=== PATIENT | male | born 1985 | race Caucasian/White ===

== ENCOUNTER 2019-10-03 11:37 | Inpatient (IN) | payer OTHER ==
--- NOTE | 2019-10-03 13:02 | HP ---
CIWA Score Nausea/Vomitin-Mild Nausea/No Vomiting Muscle Tremors: 2 Anxiety: 3 Agitation: 2 Paroxysmal Sweats: No Perspiration Orientation: 0-Oriented Tacttile Disturbances: 0-None Auditory Disturbances: 1-Very Mild Visual Disturbances: 3-Moderate Sensitivity Headache: 0-None Present CIWA-Ar Total Score: 12 - Admission Criteria OASAS Guidelines: Admission for Medically Managed Detox: Requires at least one of the followin. CIWA greater than 12 2. Seizures within the past 24 hours 3. Delirium tremens within the past 24 hours 4. Hallucinations within the past 24 hours 5. Acute intervention needed for co occurring medical disorder 6. Acute intervention needed for co occurring psychiatric disorder 7. Severe withdrawal that cannot be handled at a lower level of care (continued vomiting, continued diarrhea, abnormal vital signs) requiring intravenous medication and/or fluids 8. Admitting History and Physical - Admission Chief Complaint: Mr. Rice presents to [facility] requesting detox for "withdrawal from alcohol". History of Present Illness: Mr. Rice presents to [facility] requesting detox for "withdrawal from alcohol". He is a 34 yo gentleman with a hx of asthma. PMH: asthma PSH: none Psych: depression, non compliant: trazadone last dose 2 days ago, Lexapro 10 m gd Substance Use History Alcohol: 2 pints Vodka daily, began at age 13 y, last drink yesterday. Longest abstinence [id number], then relapsed. Here in 2009. Blackout yesterday went to [place], tx with Librium last night. Hx of seizure 3 weeks ago with alcohol abstinence. Nicotine: stopped age 17 y Denies: benzo, heroin, methadone, cocaine - Past Medical History Pulmonary: Yes: Asthma - Smoking History Smoking history: Former smoker Have you smoked in the past 12 months: No - Alcohol/Substance Use Hx Alcohol Use: Yes - Social History Usual Living Arrangement: Yes: Other (alf) Do you think of yourself as: Straight/Heterosexual Occupation: not working History of Recent Travel: No Admission ROS [facility] Allergies/Adverse Reactions: Allergies Allergy/AdvReac Type Severity Reaction Status Date / Time No Known Drug Allergies Allergy Verified 10/03/19 13:13 - Ebola screening Have you traveled outside of the country in the last 21 days: No Have you had contact with anyone from an Ebola affected area: No Have you been sick,other than usual withdrawal symptoms: No Do you have a fever: No - Review of Systems Constitutional: No Symptoms Reported EENT: reports: No Symptoms Reported Respiratory: reports: No Symptoms reported Cardiac: reports: No Symptoms Reported GI: reports: No Symptoms Reported : reports: No Symptoms Reported Musculoskeletal: reports: No Symptoms Reported Integumentary: reports: No Symptoms Reported Neuro: reports: No Symptoms reported Endocrine: reports: No Symptoms Reported Hematology: reports: No Symptoms Reported Psychiatric: reports: No Sypmtoms Reported, Depressed Patient History - Patient Medical History Hx Asthma: Yes (albuterol prn) Hx Chronic Obstructive Pulmonary Disease (COPD): No Hx Cancer: No Hx Cardiac Disorders: No Hx Congestive Heart Failure: No Hx Hypertension: No Hx Hypercholesterolemia: No HX Cerebrovascular Accident: No Hx Seizures: Yes (3 weeks ago in the context of alcohol withdrawal) Hx Diabetes: No Hx Gastrointestinal Disorders: No Hx Liver Disease: No Hx Sexually Transmitted Disorders: No Hx Renal Disease (ESRD): No Hx Thyroid Disease: No Hx Human Immunodeficiency Virus (HIV): No Hx Hepatitis C: No Hx Depression: Yes (Lexapro and trazadone) Hx Suicide Attempt: No - Patient Surgical History Past Surgical History: No - PPD History Documented Results: Negative w/o proof PPD to be Administered?: Yes - Smoking Cessation Smoking history: Former smoker Have you smoked in the past 12 months: No Initiated information on smoking cessation: No - Substances abused Alcohol Frequency: Daily Amount used: 2 pints Vodka Age of first use: 13 Date of last use: 10/02/19 Admission Physical Exam [facility] - Physical General Appearance: Yes: Within Normal Limits, Thin HEENTM: Yes: Within Normal Limits Respiratory: Yes: Lungs Clear Neck: Yes: Within Normal Limits Breast: Yes: Breast Exam Deferred Cardiology: Yes: Regular Rate, S1, S2, Tachycardia Abdominal: Yes: Normal Bowel Sounds, Non Tender, Flat Genitourinary: Yes: Other (deferred) Back: Yes: Normal Inspection Musculoskeletal: Yes: Within Normal Limits Extremities: Yes: Within Normal Limits Neurological: Yes: Fully Oriented, Alert, Other (limp, old injury) - Diagnostic (1) Alcohol dependence with withdrawal, uncomplicated Current Visit: Yes Status: Acute (2) Depression Current Visit: Yes Status: Acute Cleared for Admission [facility] - Detox or Rehab [facility] Level of Care: Medically Managed Breathalyzer - Breathalyzer Breathalyzer: 0.118 Urine Drug Screen - Results Urine drug screen results: THC-Marijuana, BZO-Benzodiazepines Inpatient Rehab Admission - Rehab Decision to Admit Inpatient rehab admission?: No
[2019-10-03] MEDS ORDERED: METHOCARBAMOL 500 MG TABLET PO PRN (13:14)
[2019-10-03] MEDS ORDERED: MELATONIN 5 MG TABLETS PO PRN (13:14)
[2019-10-03] MEDS ORDERED: MAGNESIUM CITRATE 300 ML BOTTLE PO PRN (13:14)
[2019-10-03] MEDS ORDERED: MENTHOL/PHENOL 1 EACH UD MM PRN (13:14)
[2019-10-03] MEDS ORDERED: ACETAMINOPHEN 325 MG TABLET (FP) PO PRN ×2 (13:14)
[2019-10-03] MEDS ORDERED: MAGNESIUM HYDROX 2400MG/30ML ORAL SUSPENSION 30 ML CUP PO PRN (13:14)
[2019-10-03] MEDS ORDERED: chlordiazePOXIDE HCL 25 MG CAPSULE PO PRN (13:14)
[2019-10-03] MEDS ORDERED: BISMUTH SUBSALICYLATE 262 MG/15 ML BTL PO PRN (13:14)
[2019-10-03] MEDS ORDERED: MAG HYDROX/AL HYDROX/SIMETH 30 ML UNIT-DOSE CUP PO PRN (13:14)
[2019-10-03 13:52] VITALS: BMI 20.5
[2019-10-03 17:11] LABS: HEMATOCRIT 42.2 % (35.4-49); HEMOGLOBIN 14.2 GM/dL (11.7-16.9); MCH 31.6 pg (25.7-33.7); MCHC 33.7 g/dl (32.0-35.9); MEAN CELL VOLUME 93.8 fl (80-96); MEAN PLT VOLUME 8.2 fl (7.5-11.1); PLATELET COUNT 352 K/MM3 (134-434); RBC 4.49 M/mm3 (4.00-5.60); RDW 14.9 % (11.9-15.9); WHITE BLOOD COUNT 7.8 K/mm3 (4.0-10.0)
[2019-10-03 17:24] LABS: ALBUMIN 3.4 g/dl (3.4-5.0); BLOOD UREA NITROGEN 9.3 mg/dL (7-18); CALCIUM 8.2 mg/dL (8.5-10.1); CREATININE 0.6 mg/dL (0.55-1.3); POTASSIUM 3.6 mmol/L (3.5-5.1); TOT PROT 6.9 g/dl (6.4-8.2)
[2019-10-03] MEDS: chlordiazePOXIDE HCL 25 MG CAPSULE PO SCH ×2 (18:03→22:17)
[2019-10-03] MEDS: IBUPROFEN 400 MG TABLET (FP) PO PRN (18:04)
[2019-10-03] MEDS: THIAMINE HCL 100 MG TABLET (FP) PO SCH (22:17)
[2019-10-04] MEDS: chlordiazePOXIDE HCL 25 MG CAPSULE PO SCH ×4 (05:59→22:11)
--- NOTE | 2019-10-04 08:51 | CONSULT ---
[facility] Psychiatric Consult - Data Date of interview: 10/04/19 Admission source: [facility] Identifying data: Mr Rice is a 34 years old male, father of a 5 years old daughter, unemployed receiving SSD, homeless in a [facility] seeking detox treatment for alcohol Substance Abuse History: Reports history of alcohol use. Refer to addiction counselor's summary for further information Medical History: Significant for bronchial asthma and history of alcohol related seizure. Psychiatric History: Reports that his first psychiatric contact occured at age 13 when he was diagnosed with MDD and started on Prozac. Reports receiving psychiatric treatment on & off since. He received outpatient psychiatric treatment for 5 months at [facility] till July 2019. He said that he stopped going there because it was too far. His most recent psychiatric contact occured in July 2019 when he saw a private psychiatrist in the [facility] and he was continued on Lexapro 10 mg/day and Trazadone 100 mg/hs which he was prescribed at [facility]. 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 Reports that he is currently receiving outpatient psychiatric treatment at [facility] but has not seen their staff psychiatrist yet. Reports 6-7 previous psychiatric hospitalizations at various facilities including [facility], [facility] and [facility]. Claims most recent psychiatric admission was more than one year ago but does not recall the location. Denies previous suicidal attempt. At present, reports feeling depressed, anxious and sleeping poorly. Requests to resume medications Physical/Sexual Abuse/Trauma History: Denies history of abuse as a child or DV relationship as an adult Mental Status Exam - Mental Status Exam Alert and Oriented to: Time, Place, Person Cognitive Function: Fair Patient Appearance: Disheveled Mood: Depressed, Anxious Affect: Constricted Patient Behavior: Cooperative Speech Pattern: Clear Voice Loudness: Normal Thought Process: Intact, Goal Oriented Thought Disorder: Not Present Hallucinations: Denies Suicidal Ideation: Denies Homicidal Ideation: Denies Insight/Judgement: Poor Sleep: Poorly Appetite: Poor Muscle strength/Tone: Normal Gait/Station: Normal Psychiatric Findings - Problem List ([place] 1, 2,3) (1) MDD (major depressive disorder), recurrent, severe, with psychosis Current Visit: Yes Status: Chronic (2) Alcohol-induced mood disorder Current Visit: Yes Status: Acute (3) Alcohol-induced sleep disorder Current Visit: Yes Status: Acute (4) Alcohol dependence with withdrawal, uncomplicated Current Visit: Yes Status: Acute (5) Bronchial asthma Current Visit: Yes Status: Chronic (6) Alcohol related seizure Current Visit: Yes Status: Resolved - Initial Treatment Plan Initial Treatment Plan: 1) Resume Lexapro 10 mg po daily and Trazadone 100 mg po HS. 2) Continue inpatient detoxification
[2019-10-04] MEDS: ESCITALOPRAM OXALATE 10 MG TABLET PO SCH (10:01)
[2019-10-04] MEDS: PRENATAL VITAMINS W/ FOLIC ACID TABLET (FP) PO SCH (10:01)
--- NOTE | 2019-10-04 11:24 | PN ---
S CIWA - CIWA Score Nausea/Vomitin-Mild Nausea/No Vomiting Muscle Tremors: 2 Anxiety: 2 Agitation: 2 Paroxysmal Sweats: No Perspiration Orientation: 0-Oriented Tacttile Disturbances: 1-Very Mild Itch/Numbness Auditory Disturbances: 0-None Visual Disturbances: 0-None Headache: 1-Very Mild CIWA-Ar Total Score: 9 S Progress Note (SOAP) Subjective: alert,irritable,anxious,interrupted sleep,rash in both legs,stated has it for 1 month and was treated with permethrin before Objective: 10/04/19 11:26 Vital Signs Temperature 98.2 F 10/04/19 08:52 Pulse Rate 84 10/04/19 08:52 Respiratory Rate 18 10/04/19 08:52 Blood Pressure 112/93 10/04/19 08:52 O2 Sat by Pulse Oximetry (%) Assessment: 10/04/19 11:26 withdrawal symptom 10/04/19 11:27 rash in both legs Plan: continue detox libium regimen
[2019-10-04] MEDS: hydrOXYzine PAMOATE 25 MG CAPSULE (FP) PO PRN (11:40)
[2019-10-04] MEDS ORDERED: PERMETHRIN 5% TOPICAL CREAM 60 GM TUBE TP ONE (11:50)
[2019-10-04] MEDS: traZODone HCL 100 MG TABLET (FP) PO SCH (22:11)
[2019-10-04] MEDS: THIAMINE HCL 100 MG TABLET (FP) PO SCH (22:11)
[2019-10-05] MEDS: chlordiazePOXIDE HCL 25 MG CAPSULE PO SCH ×4 (05:17→22:36)
[2019-10-05] MEDS: hydrOXYzine PAMOATE 25 MG CAPSULE (FP) PO PRN ×2 (05:17→22:36)
[2019-10-05] MEDS: PRENATAL VITAMINS W/ FOLIC ACID TABLET (FP) PO SCH (10:01)
[2019-10-05] MEDS: ESCITALOPRAM OXALATE 10 MG TABLET PO SCH (10:02)
[2019-10-05] MEDS: IBUPROFEN 400 MG TABLET (FP) PO PRN (10:44)
--- NOTE | 2019-10-05 12:06 | PN ---
S CIWA - CIWA Score Nausea/Vomitin Muscle Tremors: 2 Anxiety: 2 Agitation: 2 Paroxysmal Sweats: 1-Minimal Palms Moist Orientation: 0-Oriented Tacttile Disturbances: 1-Very Mild Itch/Numbness Auditory Disturbances: 0-None Visual Disturbances: 0-None Headache: 1-Very Mild CIWA-Ar Total Score: 11 S Progress Note (SOAP) Subjective: Interrupted sleep, irritability, anxiety, sweats and shakes Objective: 10/05/19 12:04 Withdrawal sx Vital Signs Period Temp Pulse Resp BP Sys/Singh Pulse Ox Last 24 Hr 96.8 F-98.2 F 82-125 17-18 91-128/69-88 VSS Laboratory Last Values WBC 7.8 K/mm3 (4.0-10.0) 10/03/19 14:00 RBC 4.49 M/mm3 (4.00-5.60) 10/03/19 14:00 Hgb 14.2 GM/dL (11.7-16.9) 10/03/19 14:00 Hct 42.2 % (35.4-49) 10/03/19 14:00 MCV 93.8 fl (80-96) 10/03/19 14:00 MCH 31.6 pg (25.7-33.7) 10/03/19 14:00 MCHC 33.7 g/dl (32.0-35.9) 10/03/19 14:00 RDW 14.9 % (11.9-15.9) 10/03/19 14:00 Plt Count 352 K/MM3 (134-434) 10/03/19 14:00 MPV 8.2 fl (7.5-11.1) 10/03/19 14:00 Sodium 140 mmol/L (136-145) 10/03/19 14:00 Potassium 3.6 mmol/L (3.5-5.1) 10/03/19 14:00 Chloride 104 mmol/L (98-107) 10/03/19 14:00 Carbon Dioxide 25 mmol/L (21-32) 10/03/19 14:00 Anion Gap 11 MMOL/L (8-16) 10/03/19 14:00 BUN 9.3 mg/dL (7-18) 10/03/19 14:00 Creatinine 0.6 mg/dL (0.55-1.3) 10/03/19 14:00 Est GFR (CKD-EPI)AfAm 149.92 10/03/19 14:00 Est GFR (CKD-EPI)NonAf 129.35 10/03/19 14:00 Random Glucose 109 mg/dL (74-106) H 10/03/19 14:00 Calcium 8.2 mg/dL (8.5-10.1) L 10/03/19 14:00 Total Bilirubin 1.0 mg/dL (0.2-1) 10/03/19 14:00 AST 66 U/L (15-37) H 10/03/19 14:00 ALT 77 U/L (13-61) H 10/03/19 14:00 Alkaline Phosphatase 68 U/L (45-117) 10/03/19 14:00 Total Protein 6.9 g/dl (6.4-8.2) 10/03/19 14:00 Albumin 3.4 g/dl (3.4-5.0) 10/03/19 14:00 RPR Titer Nonreactive (NONREACTIVE) 10/03/19 14:00 Labs noted,no panic values Assessment: 10/05/19 12:05 Withdrawal sx Plan: Continue detox
[2019-10-05] MEDS: THIAMINE HCL 100 MG TABLET (FP) PO SCH (22:36)
[2019-10-05] MEDS: traZODone HCL 100 MG TABLET (FP) PO SCH (22:36)
[2019-10-06] MEDS ORDERED: chlordiazePOXIDE HCL 10 MG CAPSULE PO PRN
[2019-10-06] MEDS: chlordiazePOXIDE HCL 10 MG CAPSULE PO SCH ×4 (06:00→22:07)
[2019-10-06] MEDS: hydrOXYzine PAMOATE 25 MG CAPSULE (FP) PO PRN ×2 (06:00→17:12)
[2019-10-06] MEDS: ESCITALOPRAM OXALATE 10 MG TABLET PO SCH (10:21)
[2019-10-06] MEDS: PRENATAL VITAMINS W/ FOLIC ACID TABLET (FP) PO SCH (10:21)
--- NOTE | 2019-10-06 17:22 | PN ---
S CIWA - CIWA Score Nausea/Vomitin-Mild Nausea/No Vomiting Muscle Tremors: 2 Anxiety: 2 Agitation: 2 Paroxysmal Sweats: 2 Orientation: 0-Oriented Tacttile Disturbances: 0-None Auditory Disturbances: 0-None Visual Disturbances: 0-None Headache: 0-None Present CIWA-Ar Total Score: 9 BHS Progress Note (SOAP) Subjective: Interrupted sleep, anxiety, tremor. Patient requested room change stating his roommate [place] [id number] snores loudly and he can't sleep. Objective: 10/06/19 17:19 Last Vital Signs Temp Pulse Resp BP Pulse Ox 98.8 F 96 H 18 89/60 L 10/06/19 16:54 10/06/19 16:54 10/06/19 16:54 10/06/19 16:54 Hypotension noted: asymptomatic Laboratory Tests 10/03/19 10/03/19 10/03/19 14:00 14:00 14:00 WBC 7.8 RBC 4.49 Hgb 14.2 Hct 42.2 MCV 93.8 MCH 31.6 MCHC 33.7 RDW 14.9 Plt Count 352 MPV 8.2 Sodium 140 Potassium 3.6 Chloride 104 Carbon Dioxide 25 Anion Gap 11 BUN 9.3 Creatinine 0.6 Est GFR (CKD-EPI)AfAm 149.92 Est GFR (CKD-EPI)NonAf 129.35 Random Glucose 109 H Calcium 8.2 L Total Bilirubin 1.0 AST 66 H ALT 77 H Alkaline Phosphatase 68 Total Protein 6.9 Albumin 3.4 RPR Titer Nonreactive Labs reviewed Assessment: 10/06/19 17:20 Withdrawal sxs Hypotension noted Plan: Continue detox Encouraged PO water intake Hypotension: asymptomatic, encouraged to drink more water, monitor b/p
[2019-10-06 22:03] VITALS: TEMP 97.9
[2019-10-06] MEDS: THIAMINE HCL 100 MG TABLET (FP) PO SCH (22:07)
[2019-10-06] MEDS: traZODone HCL 100 MG TABLET (FP) PO SCH (22:07)
[2019-10-07] MEDS ORDERED: chlordiazePOXIDE HCL 10 MG CAPSULE PO SCH (05:00)
[2019-10-07] MEDS: hydrOXYzine PAMOATE 25 MG CAPSULE (FP) PO PRN (06:25)
--- NOTE | 2019-10-07 09:43 | PN ---
[facility] CIWA - CIWA Score Nausea/Vomitin-No Nausea/No Vomiting Muscle Tremors: 1-None Visible, but [place] Anxiety: 1-Mildly Anxious Agitation: 1-Slight > Activity Paroxysmal Sweats: No Perspiration Orientation: 0-Oriented Tacttile Disturbances: 0-None Auditory Disturbances: 0-None Visual Disturbances: 0-None Headache: 0-None Present CIWA-Ar Total Score: 3 BHS Progress Note (SOAP) Subjective: alert,no complaint Objective: 10/07/19 09:42 Vital Signs Temperature 97.9 F 10/07/19 07:59 Pulse Rate 79 10/07/19 07:59 Respiratory Rate 18 10/07/19 07:59 Blood Pressure 94/57 L 10/07/19 07:59 O2 Sat by Pulse Oximetry (%) Assessment: 10/07/19 09:42 no withdrawal symptom Plan: stable for discharge today,follow up with after care program as arrangement
--- NOTE | 2019-10-07 09:48 | DS ---
[facility] Detox Discharge Summary Admission Date: 10/03/19 Discharge Date: 10/07/19 - History Present History: Alcohol Dependence Additional Comments: alert,oriented x 3,ambulation on the unit heart normal heart sound lung clear,no wheezing no abdominal pain stable for discharge, discharge time spending 30 minutes Pertinent Past History: asthma alcohol related seizure depression - Physical Exam Results Vital Signs: Vital Signs Temperature 97.9 F 10/07/19 07:59 Pulse Rate 79 10/07/19 07:59 Respiratory Rate 18 10/07/19 07:59 Blood Pressure 94/57 L 10/07/19 07:59 O2 Sat by Pulse Oximetry (%) Pertinent Admission Physical Exam Findings: withdrawal signs and symptom Vital Signs Temperature 97.9 F 10/07/19 07:59 Pulse Rate 79 10/07/19 07:59 Respiratory Rate 18 10/07/19 07:59 Blood Pressure 94/57 L 10/07/19 07:59 O2 Sat by Pulse Oximetry (%) Laboratory Last Values WBC 7.8 K/mm3 (4.0-10.0) 10/03/19 14:00 RBC 4.49 M/mm3 (4.00-5.60) 10/03/19 14:00 Hgb 14.2 GM/dL (11.7-16.9) 10/03/19 14:00 Hct 42.2 % (35.4-49) 10/03/19 14:00 MCV 93.8 fl (80-96) 10/03/19 14:00 MCH 31.6 pg (25.7-33.7) 10/03/19 14:00 MCHC 33.7 g/dl (32.0-35.9) 10/03/19 14:00 RDW 14.9 % (11.9-15.9) 10/03/19 14:00 Plt Count 352 K/MM3 (134-434) 10/03/19 14:00 MPV 8.2 fl (7.5-11.1) 10/03/19 14:00 Sodium 140 mmol/L (136-145) 10/03/19 14:00 Potassium 3.6 mmol/L (3.5-5.1) 10/03/19 14:00 Chloride 104 mmol/L (98-107) 10/03/19 14:00 Carbon Dioxide 25 mmol/L (21-32) 10/03/19 14:00 Anion Gap 11 MMOL/L (8-16) 10/03/19 14:00 BUN 9.3 mg/dL (7-18) 10/03/19 14:00 Creatinine 0.6 mg/dL (0.55-1.3) 10/03/19 14:00 Est GFR (CKD-EPI)AfAm 149.92 10/03/19 14:00 Est GFR (CKD-EPI)NonAf 129.35 10/03/19 14:00 Random Glucose 109 mg/dL (74-106) H 10/03/19 14:00 Calcium 8.2 mg/dL (8.5-10.1) L 10/03/19 14:00 Total Bilirubin 1.0 mg/dL (0.2-1) 10/03/19 14:00 AST 66 U/L (15-37) H 10/03/19 14:00 ALT 77 U/L (13-61) H 10/03/19 14:00 Alkaline Phosphatase 68 U/L (45-117) 10/03/19 14:00 Total Protein 6.9 g/dl (6.4-8.2) 10/03/19 14:00 Albumin 3.4 g/dl (3.4-5.0) 10/03/19 14:00 RPR Titer Nonreactive (NONREACTIVE) 10/03/19 14:00 - Treatment Hospital Course: Detox Protocol Followed, Detoxed Safely, Responded well, Discharged Condition Good Patient has Accepted a Rehab Referral to: declined - Medication Discharge Medications: Ambulatory Orders Albuterol Sulfate Inhaler - [Ventolin Hfa Inhaler -] 1 - 2 inh PO QID 10/03/19 Escitalopram Oxalate [Lexapro -] 10 mg PO DAILY 10/03/19 traZODone HCL [Trazodone HCl] 100 mg PO HS 10/03/19 - Diagnosis (1) Alcohol dependence with withdrawal, uncomplicated Current Visit: Yes Status: Acute (2) Bronchial asthma Current Visit: Yes Status: Chronic (3) MDD (major depressive disorder), recurrent, severe, with psychosis Current Visit: Yes Status: Chronic (4) Alcohol related seizure Current Visit: Yes Status: Resolved - AMA Did Patient Leave Against Medical Advice: No
[2019-10-07] MEDS ORDERED: ALBUTEROL SO4 HFA INHALER IH PRN (09:51)
[2019-10-07 09:55] VITALS: BP 110/66; PULSE 85
[2019-10-07] MEDS: ESCITALOPRAM OXALATE 10 MG TABLET PO SCH (10:17)
[2019-10-07] MEDS: PRENATAL VITAMINS W/ FOLIC ACID TABLET (FP) PO SCH (10:17)
[2019-10-08] MEDS ORDERED: chlordiazePOXIDE HCL 10 MG CAPSULE PO ONE (05:00)
== END 2019-10-07 10:25 | disposition home or self-care (01) | DRG 897 ==
LOC: YASAS 11:37 → Y6N 14:22
PROVIDERS: ADMIT Allergy & Immunology; ATTEND Allergy & Immunology
PROC: HZ2ZZZZ Detoxification Services for Substance Abuse Treatment (ICD-10-PCS; principal; 2019-10-03)
DX: F10.230 Alcohol dependence with withdrawal, uncomplicated (principal); F33.3 Major depressive disorder, recurrent, severe with psychotic symptoms; F10.282 Alcohol dependence with alcohol-induced sleep disorder; F10.24 Alcohol dependence with alcohol-induced mood disorder; I95.9 Hypotension, unspecified; J45.909 Unspecified asthma, uncomplicated; R56.9 Unspecified convulsions; R21 Rash and other nonspecific skin eruption; Z87.891 Personal history of nicotine dependence
CPT/HCPCS: 36415; 80053; 85027; 86593

== ENCOUNTER 2020-12-18 20:54 | Inpatient (IN) | payer OTHER ==
[2020-12-18 22:54] VITALS: BMI 20.2
[2020-12-18] MEDS ORDERED: ONDANSETRON *ODT* 4 MG TABLET SL PRN (23:12)
[2020-12-18] MEDS ORDERED: BISMUTH SUBSALICYLATE 524 MG/30 ML UD PO PRN (23:12)
[2020-12-18] MEDS ORDERED: MENTHOL/PHENOL 1 EACH UD MM PRN (23:12)
[2020-12-18] MEDS ORDERED: NICOTINE POLACRILEX 2 MG GUM BUC PRN (23:12)
[2020-12-18] MEDS ORDERED: IBUPROFEN 400 MG TABLET (FP) PO PRN (23:12)
[2020-12-18] MEDS ORDERED: MAG HYDROX/AL HYDROX/SIMETH 30 ML UNIT-DOSE CUP PO PRN (23:12)
[2020-12-18] MEDS ORDERED: chlordiazePOXIDE HCL 25 MG CAPSULE PO PRN (23:12)
[2020-12-18] MEDS ORDERED: MAGNESIUM CITRATE 300 ML BOTTLE PO PRN (23:12)
[2020-12-18] MEDS ORDERED: MAGNESIUM HYDROX 2400MG/30ML ORAL SUSPENSION 30 ML CUP PO PRN (23:12)
[2020-12-18] MEDS ORDERED: ACETAMINOPHEN 325 MG TABLET (FP) PO PRN ×2 (23:12)
[2020-12-19] MEDS ORDERED: IBUPROFEN 400 MG TABLET (FP) PO ONE (00:38)
[2020-12-19] MEDS ORDERED: chlordiazePOXIDE HCL 25 MG CAPSULE ONE ×2 (00:38→01:27)
[2020-12-19] MEDS: chlordiazePOXIDE HCL 25 MG CAPSULE PO SCH ×5 (00:39→22:54)
[2020-12-19] MEDS: METHOCARBAMOL 500 MG TABLET PO PRN ×3 (02:52→22:54)
[2020-12-19] MEDS: NICOTINE 14 MG/24 HOURS TOPICAL PATCH TD SCH (10:33)
[2020-12-19] MEDS: PRENATAL VITAMINS W/ FOLIC ACID TABLET (FP) PO SCH (10:33)
[2020-12-19] MEDS: ESCITALOPRAM OXALATE 10 MG TABLET PO SCH (13:51)
[2020-12-19] MEDS ORDERED: MASKS NR ONE (17:33)
[2020-12-19] MEDS: traZODone HCL 50 MG TABLET (FP) PO SCH (22:54)
[2020-12-19] MEDS: MELATONIN 5 MG TABLETS PO SCH (22:54)
[2020-12-19] MEDS: THIAMINE HCL 100 MG TABLET (FP) PO SCH (22:56)
[2020-12-20] MEDS: chlordiazePOXIDE HCL 25 MG CAPSULE PO SCH ×4 (06:27→22:39)
[2020-12-20] MEDS: ESCITALOPRAM OXALATE 10 MG TABLET PO SCH (10:46)
[2020-12-20] MEDS: NICOTINE 14 MG/24 HOURS TOPICAL PATCH TD SCH (10:47)
[2020-12-20] MEDS: PRENATAL VITAMINS W/ FOLIC ACID TABLET (FP) PO SCH (10:47)
[2020-12-20] MEDS: traZODone HCL 50 MG TABLET (FP) PO SCH (22:38)
[2020-12-20] MEDS: THIAMINE HCL 100 MG TABLET (FP) PO SCH (22:38)
[2020-12-20] MEDS: MELATONIN 5 MG TABLETS PO SCH (22:38)
[2020-12-20] MEDS: ALBUTEROL SO4 HFA INHALER IH SCH (22:38)
[2020-12-21] MEDS ORDERED: chlordiazePOXIDE HCL 10 MG CAPSULE PO PRN
[2020-12-21] MEDS: chlordiazePOXIDE HCL 10 MG CAPSULE PO SCH ×4 (06:18→22:26)
[2020-12-21] MEDS: PRENATAL VITAMINS W/ FOLIC ACID TABLET (FP) PO SCH (10:28)
[2020-12-21] MEDS: NICOTINE 14 MG/24 HOURS TOPICAL PATCH TD SCH (10:28)
[2020-12-21] MEDS: ESCITALOPRAM OXALATE 10 MG TABLET PO SCH (10:28)
[2020-12-21] MEDS: ALBUTEROL SO4 HFA INHALER IH SCH ×4 (10:28→22:27)
[2020-12-21] MEDS ORDERED: ONDANSETRON *ODT* 4 MG TABLET SL ONE (12:14)
[2020-12-21] MEDS ORDERED: DICYCLOMINE HCL 10 MG CAPSULE PO ONE (12:16)
[2020-12-21] MEDS: traZODone HCL 50 MG TABLET (FP) PO SCH (22:26)
[2020-12-21] MEDS: MELATONIN 5 MG TABLETS PO SCH (22:26)
[2020-12-21] MEDS: THIAMINE HCL 100 MG TABLET (FP) PO SCH (22:26)
[2020-12-22] MEDS: chlordiazePOXIDE HCL 10 MG CAPSULE PO SCH ×2 (06:28→17:44)
[2020-12-22 10:07] LABS: SARS-CoV-2 NAA Not Detected (Not Detected)
[2020-12-22] MEDS: NICOTINE 14 MG/24 HOURS TOPICAL PATCH TD SCH (10:22)
[2020-12-22] MEDS: PRENATAL VITAMINS W/ FOLIC ACID TABLET (FP) PO SCH (10:22)
[2020-12-22] MEDS: ESCITALOPRAM OXALATE 10 MG TABLET PO SCH (10:22)
[2020-12-22] MEDS: ALBUTEROL SO4 HFA INHALER IH SCH ×5 (10:23→22:12)
[2020-12-22] MEDS ORDERED: ONDANSETRON *ODT* 4 MG TABLET SL ONE (10:27)
[2020-12-22] MEDS ORDERED: DICYCLOMINE HCL 10 MG CAPSULE PO ONE (10:30)
[2020-12-22] MEDS: FAMOTIDINE 20 MG TABLET PO SCH ×2 (12:44→22:11)
[2020-12-22] MEDS: THIAMINE HCL 100 MG TABLET (FP) PO SCH (22:11)
[2020-12-22] MEDS: traZODone HCL 50 MG TABLET (FP) PO SCH (22:11)
[2020-12-22] MEDS: MELATONIN 5 MG TABLETS PO SCH (22:12)
[2020-12-23] MEDS ORDERED: chlordiazePOXIDE HCL 10 MG CAPSULE PO ONE (05:00)
[2020-12-23 06:51] VITALS: BP 107/65; PULSE 84; TEMP 97.9
== END 2020-12-23 09:43 | disposition home or self-care (01) | DRG 897 ==
LOC: YASAS 20:54 → Y6N 12-19 01:44
PROVIDERS: ADMIT Allergy & Immunology; ATTEND Allergy & Immunology
PROC: HZ2ZZZZ Detoxification Services for Substance Abuse Treatment (ICD-10-PCS; principal; 2020-12-19)
DX: F10.230 Alcohol dependence with withdrawal, uncomplicated (principal); F33.3 Major depressive disorder, recurrent, severe with psychotic symptoms; F12.20 Cannabis dependence, uncomplicated; F10.282 Alcohol dependence with alcohol-induced sleep disorder; F10.24 Alcohol dependence with alcohol-induced mood disorder; F19.24 Other psychoactive substance dependence with psychoactive substance-induced mood disorder; J45.909 Unspecified asthma, uncomplicated; H11.31 Conjunctival hemorrhage, right eye; Z87.891 Personal history of nicotine dependence; W19.XXXA Unspecified fall, initial encounter; Y93.89 Activity, other specified; Y92.238 Other place in hospital as the place of occurrence of the external cause; Y99.8 Other external cause status
CPT/HCPCS: 70450-TC; 72125-TC; 93005; 93010; C9803; Q0162; U0003; U0005

== ENCOUNTER 2021-07-09 21:18 | Inpatient (IN) | payer OTHER ==
[2021-07-09 22:28] VITALS: BMI 19.8
[2021-07-09] MEDS ORDERED: MAGNESIUM HYDROX 2400MG/30ML ORAL SUSPENSION 30 ML CUP PO PRN (22:34)
[2021-07-09] MEDS ORDERED: MAG HYDROX/AL HYDROX/SIMETH 30 ML UNIT-DOSE CUP PO PRN (22:34)
[2021-07-09] MEDS ORDERED: DICYCLOMINE HCL 10 MG CAPSULE PO PRN (22:34)
[2021-07-09] MEDS ORDERED: MENTHOL/PHENOL 1 EACH UD MM PRN (22:34)
[2021-07-09] MEDS ORDERED: BISMUTH SUBSALICYLATE 524 MG/30 ML PO PRN (22:34)
[2021-07-09] MEDS ORDERED: MAGNESIUM CITRATE 300 ML BOTTLE PO PRN (22:34)
[2021-07-09] MEDS ORDERED: P-EPHED 60MG/TRIPROLIDI 2.5MG TABLET PO PRN (22:34)
[2021-07-09] MEDS ORDERED: ACETAMINOPHEN 325 MG TABLET (FP) PO PRN (22:34)
[2021-07-09] MEDS ORDERED: diazePAM 5 MG TABLET PO PRN (22:34)
[2021-07-09] MEDS ORDERED: hydrOXYzine PAMOATE 25 MG CAPSULE (FP) PO PRN (22:34)
[2021-07-09] MEDS ORDERED: guaiFENesin 200 MG/10 ML 10 ML UNIT-DOSE CUPS PO PRN (22:34)
[2021-07-10] MEDS ORDERED: diazePAM 5 MG TABLET ONE (00:32)
[2021-07-10] MEDS: diazePAM 5 MG TABLET PO SCH ×5 (00:35→22:31)
[2021-07-10] MEDS ORDERED: METHOCARBAMOL 500 MG TABLET ONE (01:04)
[2021-07-10] MEDS ORDERED: ACETAMINOPHEN 325 MG TABLET (FP) ONE (01:05)
[2021-07-10] MEDS: ACETAMINOPHEN 325 MG TABLET (FP) PO PRN ×4 (01:08→17:50)
[2021-07-10] MEDS: METHOCARBAMOL 500 MG TABLET PO PRN ×3 (01:09→17:54)
[2021-07-10] MEDS: PRENATAL VITAMINS W/ FOLIC ACID TABLET (FP) PO SCH (10:17)
[2021-07-10] MEDS: BACITRACIN 15 GM TUBE TOPICAL OINTMENT TP SCH (10:20)
[2021-07-10] MEDS: ONDANSETRON *ODT* 4 MG TABLET SL PRN (11:14)
[2021-07-10] MEDS: THIAMINE HCL 100 MG TABLET (FP) PO SCH (22:30)
[2021-07-10] MEDS: traZODone HCL 100 MG TABLET (FP) PO SCH (22:30)
[2021-07-10] MEDS: MELATONIN 5 MG TABLETS PO SCH (22:30)
[2021-07-11] MEDS: diazePAM 5 MG TABLET PO SCH ×3 (06:20→22:21)
[2021-07-11] MEDS: ACETAMINOPHEN 325 MG TABLET (FP) PO PRN ×2 (06:21→14:38)
[2021-07-11] MEDS: METHOCARBAMOL 500 MG TABLET PO PRN (06:24)
[2021-07-11] MEDS: PRENATAL VITAMINS W/ FOLIC ACID TABLET (FP) PO SCH (10:18)
[2021-07-11] MEDS: IBUPROFEN 400 MG TABLET (FP) PO PRN ×2 (10:22→22:20)
[2021-07-11] MEDS: BACITRACIN 15 GM TUBE TOPICAL OINTMENT TP SCH (11:02)
[2021-07-11] MEDS: traZODone HCL 100 MG TABLET (FP) PO SCH (22:19)
[2021-07-11] MEDS: MELATONIN 5 MG TABLETS PO SCH (22:19)
[2021-07-11] MEDS: THIAMINE HCL 100 MG TABLET (FP) PO SCH (22:19)
[2021-07-12] MEDS: diazePAM 5 MG TABLET PO SCH ×2 (06:13→17:39)
[2021-07-12] MEDS: ACETAMINOPHEN 325 MG TABLET (FP) PO PRN ×2 (06:14→22:12)
[2021-07-12] MEDS: METHOCARBAMOL 500 MG TABLET PO PRN ×2 (06:16→22:12)
[2021-07-12] MEDS: IBUPROFEN 400 MG TABLET (FP) PO PRN ×2 (10:22→16:39)
[2021-07-12] MEDS: PRENATAL VITAMINS W/ FOLIC ACID TABLET (FP) PO SCH (10:23)
[2021-07-12] MEDS: BACITRACIN 15 GM TUBE TOPICAL OINTMENT TP SCH (10:25)
[2021-07-12] MEDS: traZODone HCL 100 MG TABLET (FP) PO SCH (22:09)
[2021-07-12] MEDS: THIAMINE HCL 100 MG TABLET (FP) PO SCH (22:09)
[2021-07-12] MEDS: BACITRACIN 0.9 GM PACKET TP SCH (22:09)
[2021-07-12] MEDS: MELATONIN 5 MG TABLETS PO SCH (22:09)
[2021-07-13] MEDS: IBUPROFEN 400 MG TABLET (FP) PO PRN ×2 (05:55→17:26)
[2021-07-13] MEDS ORDERED: diazePAM 5 MG TABLET PO ONE (06:00)
[2021-07-13] MEDS: PRENATAL VITAMINS W/ FOLIC ACID TABLET (FP) PO SCH (09:49)
[2021-07-13] MEDS: BACITRACIN 0.9 GM PACKET TP SCH ×3 (09:49→23:06)
[2021-07-13] MEDS: ACETAMINOPHEN 325 MG TABLET (FP) PO PRN ×2 (09:49→22:26)
[2021-07-13] MEDS: METHOCARBAMOL 500 MG TABLET PO PRN ×2 (09:49→22:26)
[2021-07-13] MEDS: THIAMINE HCL 100 MG TABLET (FP) PO SCH (22:26)
[2021-07-13] MEDS: traZODone HCL 100 MG TABLET (FP) PO SCH (22:26)
[2021-07-13] MEDS: MELATONIN 5 MG TABLETS PO SCH (23:05)
[2021-07-14] MEDS: ALBUTEROL SO4 HFA INHALER IH PRN ×2 (08:59→20:01)
[2021-07-14] MEDS: METHOCARBAMOL 500 MG TABLET PO PRN (09:02)
[2021-07-14] MEDS: ACETAMINOPHEN 325 MG TABLET (FP) PO PRN ×2 (10:17→22:21)
[2021-07-14] MEDS: PRENATAL VITAMINS W/ FOLIC ACID TABLET (FP) PO SCH (10:18)
[2021-07-14] MEDS: BACITRACIN 0.9 GM PACKET TP SCH ×2 (10:18→22:24)
[2021-07-14] MEDS: FLUTICASONE/SALMETEROL 100 MCG/50 MCG DISKUS IH SCH ×2 (10:55→22:21)
[2021-07-14] MEDS: GABAPENTIN 300 MG CAPSULE PO SCH ×2 (14:02→22:21)
[2021-07-14] MEDS: traZODone HCL 100 MG TABLET (FP) PO SCH (22:21)
[2021-07-14] MEDS: THIAMINE HCL 100 MG TABLET (FP) PO SCH (22:21)
[2021-07-14] MEDS: MELATONIN 5 MG TABLETS PO SCH (22:21)
[2021-07-15] MEDS: ACETAMINOPHEN 325 MG TABLET (FP) PO PRN ×2 (05:14→20:56)
[2021-07-15] MEDS: GABAPENTIN 300 MG CAPSULE PO SCH ×3 (05:14→22:37)
[2021-07-15] MEDS: METHOCARBAMOL 500 MG TABLET PO PRN ×2 (05:15→20:57)
[2021-07-15] MEDS: PRENATAL VITAMINS W/ FOLIC ACID TABLET (FP) PO SCH (10:08)
[2021-07-15] MEDS: BACITRACIN 0.9 GM PACKET TP SCH ×2 (10:08→22:37)
[2021-07-15] MEDS: FLUTICASONE/SALMETEROL 100 MCG/50 MCG DISKUS IH SCH ×2 (10:08→22:38)
[2021-07-15 11:04] LABS: HEMATOCRIT 36.2 % (35.4-49); HEMOGLOBIN 11.8 GM/dL (11.7-16.9); MCHC 32.7 g/dl (32.0-35.9); MEAN CELL VOLUME 91.8 fl (80-96); MEAN PLT VOLUME 8.3 fl (7.5-11.1); PLATELET COUNT 184 10^3/uL (134-434); RBC 3.95 M/mm3 (4.00-5.60); RDW 16.3 % (11.9-15.9); WHITE BLOOD COUNT 5.5 K/mm3 (4.0-10.0)
[2021-07-15 11:48] LABS: ALBUMIN 3.4 g/dl (3.4-5.0); CALCIUM 8.7 mg/dL (8.5-10.1)
[2021-07-15 11:52] LABS: CREATININE 0.6 mg/dL (0.55-1.3)
[2021-07-15 11:53] LABS: BILIRUBIN,TOTAL 0.7 mg/dL (0.2-1); TOT PROT 6.9 g/dl (6.4-8.2)
[2021-07-15] MEDS: THIAMINE HCL 100 MG TABLET (FP) PO SCH (22:37)
[2021-07-15] MEDS: MELATONIN 5 MG TABLETS PO SCH (22:37)
[2021-07-15] MEDS: traZODone HCL 100 MG TABLET (FP) PO SCH (22:39)
[2021-07-16] MEDS: ACETAMINOPHEN 325 MG TABLET (FP) PO PRN ×2 (05:32→13:10)
[2021-07-16] MEDS: GABAPENTIN 300 MG CAPSULE PO SCH ×3 (05:32→21:25)
[2021-07-16] MEDS: BACITRACIN 0.9 GM PACKET TP SCH ×2 (10:48→21:25)
[2021-07-16] MEDS: FLUTICASONE/SALMETEROL 100 MCG/50 MCG DISKUS IH SCH ×2 (10:48→21:25)
[2021-07-16] MEDS: PRENATAL VITAMINS W/ FOLIC ACID TABLET (FP) PO SCH (10:48)
[2021-07-16] MEDS: METHOCARBAMOL 500 MG TABLET PO SCH ×3 (13:11→21:25)
[2021-07-16] MEDS: IBUPROFEN 400 MG TABLET (FP) PO PRN (17:56)
[2021-07-16] MEDS: traZODone HCL 100 MG TABLET (FP) PO SCH (21:25)
[2021-07-16] MEDS: THIAMINE HCL 100 MG TABLET (FP) PO SCH (21:25)
[2021-07-16] MEDS: MELATONIN 5 MG TABLETS PO SCH (21:25)
[2021-07-17] MEDS: ACETAMINOPHEN 325 MG TABLET (FP) PO PRN ×3 (06:09→21:07)
[2021-07-17] MEDS: GABAPENTIN 300 MG CAPSULE PO SCH ×3 (06:09→21:06)
[2021-07-17] MEDS: METHOCARBAMOL 500 MG TABLET PO SCH ×4 (09:50→21:07)
[2021-07-17] MEDS: PRENATAL VITAMINS W/ FOLIC ACID TABLET (FP) PO SCH (09:50)
[2021-07-17] MEDS: BACITRACIN 0.9 GM PACKET TP SCH ×2 (09:50→21:06)
[2021-07-17] MEDS: FLUTICASONE/SALMETEROL 100 MCG/50 MCG DISKUS IH SCH ×2 (09:51→21:07)
[2021-07-17] MEDS: traZODone HCL 100 MG TABLET (FP) PO SCH (21:06)
[2021-07-17] MEDS: THIAMINE HCL 100 MG TABLET (FP) PO SCH (21:07)
[2021-07-17] MEDS: MELATONIN 5 MG TABLETS PO SCH (21:07)
[2021-07-18] MEDS: ACETAMINOPHEN 325 MG TABLET (FP) PO PRN ×3 (05:58→21:50)
[2021-07-18] MEDS: GABAPENTIN 300 MG CAPSULE PO SCH ×3 (05:58→21:49)
[2021-07-18] MEDS: METHOCARBAMOL 500 MG TABLET PO SCH ×4 (10:37→21:49)
[2021-07-18] MEDS: PRENATAL VITAMINS W/ FOLIC ACID TABLET (FP) PO SCH (10:37)
[2021-07-18] MEDS: FLUTICASONE/SALMETEROL 100 MCG/50 MCG DISKUS IH SCH ×2 (10:37→21:49)
[2021-07-18] MEDS: BACITRACIN 0.9 GM PACKET TP SCH ×2 (10:38→21:49)
[2021-07-18] MEDS: THIAMINE HCL 100 MG TABLET (FP) PO SCH (21:49)
[2021-07-18] MEDS: MELATONIN 5 MG TABLETS PO SCH (21:49)
[2021-07-18] MEDS: traZODone HCL 100 MG TABLET (FP) PO SCH (21:49)
[2021-07-19] MEDS: ACETAMINOPHEN 325 MG TABLET (FP) PO PRN ×3 (06:09→21:03)
[2021-07-19] MEDS: GABAPENTIN 300 MG CAPSULE PO SCH ×3 (06:09→21:02)
[2021-07-19] MEDS: METHOCARBAMOL 500 MG TABLET PO SCH ×3 (10:03→21:02)
[2021-07-19] MEDS: PRENATAL VITAMINS W/ FOLIC ACID TABLET (FP) PO SCH (10:03)
[2021-07-19] MEDS: BACITRACIN 0.9 GM PACKET TP SCH ×2 (10:03→21:02)
[2021-07-19] MEDS: FLUTICASONE/SALMETEROL 100 MCG/50 MCG DISKUS IH SCH ×2 (10:04→18:05)
[2021-07-19] MEDS ORDERED: COLLOIDAL OATMEAL 1 BAR EACH TP PRN (12:37)
[2021-07-19] MEDS: MELATONIN 5 MG TABLETS PO SCH (21:02)
[2021-07-19] MEDS: traZODone HCL 100 MG TABLET (FP) PO SCH (21:02)
[2021-07-19] MEDS: THIAMINE HCL 100 MG TABLET (FP) PO SCH (21:02)
[2021-07-20] MEDS: METHOCARBAMOL 500 MG TABLET PO SCH ×3 (06:36→21:38)
[2021-07-20] MEDS: FLUTICASONE/SALMETEROL 100 MCG/50 MCG DISKUS IH SCH ×2 (06:36→19:54)
[2021-07-20] MEDS: PRENATAL VITAMINS W/ FOLIC ACID TABLET (FP) PO SCH (06:36)
[2021-07-20] MEDS: GABAPENTIN 300 MG CAPSULE PO SCH ×3 (06:36→21:38)
[2021-07-20] MEDS: ACETAMINOPHEN 325 MG TABLET (FP) PO PRN ×3 (06:36→21:40)
[2021-07-20] MEDS: BACITRACIN 0.9 GM PACKET TP SCH ×2 (10:51→21:59)
[2021-07-20] MEDS: traZODone HCL 100 MG TABLET (FP) PO SCH (21:38)
[2021-07-20] MEDS: THIAMINE HCL 100 MG TABLET (FP) PO SCH (21:38)
[2021-07-20] MEDS: MELATONIN 5 MG TABLETS PO SCH (21:39)
[2021-07-21] MEDS: PRENATAL VITAMINS W/ FOLIC ACID TABLET (FP) PO SCH (06:17)
[2021-07-21] MEDS: ACETAMINOPHEN 325 MG TABLET (FP) PO PRN ×3 (06:17→21:05)
[2021-07-21] MEDS: FLUTICASONE/SALMETEROL 100 MCG/50 MCG DISKUS IH SCH ×2 (06:17→17:08)
[2021-07-21] MEDS: GABAPENTIN 300 MG CAPSULE PO SCH ×3 (06:17→21:03)
[2021-07-21] MEDS: METHOCARBAMOL 500 MG TABLET PO SCH ×3 (06:17→21:03)
[2021-07-21] MEDS: BACITRACIN 0.9 GM PACKET TP SCH ×2 (10:40→21:03)
[2021-07-21] MEDS ORDERED: MINERAL OIL/PETROLAT/WATER TOPICAL CREAM 454 GM JAR TP PRN (15:53)
[2021-07-21] MEDS: IBUPROFEN 400 MG TABLET (FP) PO PRN (17:58)
[2021-07-21] MEDS: traZODone HCL 100 MG TABLET (FP) PO SCH (21:03)
[2021-07-21] MEDS: THIAMINE HCL 100 MG TABLET (FP) PO SCH (21:03)
[2021-07-21] MEDS: ONDANSETRON *ODT* 4 MG TABLET SL PRN (21:06)
[2021-07-21] MEDS: MELATONIN 5 MG TABLETS PO SCH (21:07)
[2021-07-22] MEDS: GABAPENTIN 300 MG CAPSULE PO SCH ×3 (06:05→21:43)
[2021-07-22] MEDS: METHOCARBAMOL 500 MG TABLET PO SCH ×3 (06:06→21:43)
[2021-07-22] MEDS: FLUTICASONE/SALMETEROL 100 MCG/50 MCG DISKUS IH SCH ×2 (06:06→19:31)
[2021-07-22] MEDS: PRENATAL VITAMINS W/ FOLIC ACID TABLET (FP) PO SCH (06:06)
[2021-07-22] MEDS: ACETAMINOPHEN 325 MG TABLET (FP) PO PRN ×3 (06:06→21:44)
[2021-07-22] MEDS: BACITRACIN 0.9 GM PACKET TP SCH ×2 (10:27→21:43)
[2021-07-22] MEDS: traZODone HCL 100 MG TABLET (FP) PO SCH (21:43)
[2021-07-22] MEDS: THIAMINE HCL 100 MG TABLET (FP) PO SCH (21:44)
[2021-07-22] MEDS: MELATONIN 5 MG TABLETS PO SCH (21:45)
[2021-07-23] MEDS: GABAPENTIN 300 MG CAPSULE PO SCH ×3 (06:26→21:07)
[2021-07-23] MEDS: PRENATAL VITAMINS W/ FOLIC ACID TABLET (FP) PO SCH (06:26)
[2021-07-23] MEDS: FLUTICASONE/SALMETEROL 100 MCG/50 MCG DISKUS IH SCH ×2 (06:26→20:14)
[2021-07-23] MEDS: METHOCARBAMOL 500 MG TABLET PO SCH ×3 (06:26→21:07)
[2021-07-23] MEDS: ACETAMINOPHEN 325 MG TABLET (FP) PO PRN ×3 (06:27→21:11)
[2021-07-23] MEDS ORDERED: PT OWN MED DRAWER 7, Y5N ONE (09:19)
[2021-07-23] MEDS: BACITRACIN 0.9 GM PACKET TP SCH ×2 (11:00→21:12)
[2021-07-23] MEDS: traZODone HCL 100 MG TABLET (FP) PO SCH (21:07)
[2021-07-23] MEDS: THIAMINE HCL 100 MG TABLET (FP) PO SCH (21:08)
[2021-07-23] MEDS: MELATONIN 5 MG TABLETS PO SCH (21:12)
[2021-07-24] MEDS: FLUTICASONE/SALMETEROL 100 MCG/50 MCG DISKUS IH SCH ×2 (06:07→18:57)
[2021-07-24] MEDS: GABAPENTIN 300 MG CAPSULE PO SCH ×3 (06:07→21:24)
[2021-07-24] MEDS: METHOCARBAMOL 500 MG TABLET PO SCH ×3 (06:07→21:24)
[2021-07-24] MEDS: PRENATAL VITAMINS W/ FOLIC ACID TABLET (FP) PO SCH (06:07)
[2021-07-24] MEDS: ACETAMINOPHEN 325 MG TABLET (FP) PO PRN ×3 (06:09→21:25)
[2021-07-24] MEDS: BACITRACIN 0.9 GM PACKET TP SCH ×2 (13:00→21:25)
[2021-07-24] MEDS: THIAMINE HCL 100 MG TABLET (FP) PO SCH (21:24)
[2021-07-24] MEDS: traZODone HCL 100 MG TABLET (FP) PO SCH (21:24)
[2021-07-24] MEDS: MELATONIN 5 MG TABLETS PO SCH (21:26)
[2021-07-25] MEDS: FLUTICASONE/SALMETEROL 100 MCG/50 MCG DISKUS IH SCH ×2 (06:13→18:50)
[2021-07-25] MEDS: ACETAMINOPHEN 325 MG TABLET (FP) PO PRN ×3 (06:13→21:04)
[2021-07-25] MEDS: GABAPENTIN 300 MG CAPSULE PO SCH ×3 (06:13→21:03)
[2021-07-25] MEDS: METHOCARBAMOL 500 MG TABLET PO SCH ×3 (06:13→21:05)
[2021-07-25] MEDS: PRENATAL VITAMINS W/ FOLIC ACID TABLET (FP) PO SCH (06:13)
[2021-07-25] MEDS: BACITRACIN 0.9 GM PACKET TP SCH ×2 (10:15→21:05)
[2021-07-25] MEDS: IBUPROFEN 400 MG TABLET (FP) PO PRN (12:26)
[2021-07-25] MEDS: traZODone HCL 100 MG TABLET (FP) PO SCH (21:03)
[2021-07-25] MEDS: THIAMINE HCL 100 MG TABLET (FP) PO SCH (21:03)
[2021-07-25] MEDS: MELATONIN 5 MG TABLETS PO SCH (21:05)
[2021-07-26] MEDS: IBUPROFEN 400 MG TABLET (FP) PO PRN (04:07)
[2021-07-26] MEDS: FLUTICASONE/SALMETEROL 100 MCG/50 MCG DISKUS IH SCH ×2 (06:18→17:42)
[2021-07-26] MEDS: PRENATAL VITAMINS W/ FOLIC ACID TABLET (FP) PO SCH (06:18)
[2021-07-26] MEDS: METHOCARBAMOL 500 MG TABLET PO SCH ×3 (06:18→21:05)
[2021-07-26] MEDS: ACETAMINOPHEN 325 MG TABLET (FP) PO PRN ×3 (06:18→21:08)
[2021-07-26] MEDS: GABAPENTIN 300 MG CAPSULE PO SCH ×3 (06:18→21:06)
[2021-07-26] MEDS: BACITRACIN 0.9 GM PACKET TP SCH ×2 (11:43→21:05)
[2021-07-26] MEDS: THIAMINE HCL 100 MG TABLET (FP) PO SCH (21:05)
[2021-07-26] MEDS: traZODone HCL 100 MG TABLET (FP) PO SCH (21:06)
[2021-07-26] MEDS: MELATONIN 5 MG TABLETS PO SCH (21:07)
[2021-07-27] MEDS: ACETAMINOPHEN 325 MG TABLET (FP) PO PRN (06:37)
[2021-07-27] MEDS: GABAPENTIN 300 MG CAPSULE PO SCH (06:37)
[2021-07-27] MEDS: METHOCARBAMOL 500 MG TABLET PO SCH (06:37)
[2021-07-27] MEDS: PRENATAL VITAMINS W/ FOLIC ACID TABLET (FP) PO SCH (06:37)
[2021-07-27] MEDS: FLUTICASONE/SALMETEROL 100 MCG/50 MCG DISKUS IH SCH (06:37)
[2021-07-27 07:12] VITALS: BP 101/67; PULSE 105; TEMP 98.6
== END 2021-07-27 09:24 | disposition home or self-care (01) | DRG 895 ==
LOC: YASAS 21:18 → Y3N 23:49 → Y3W 07-15 23:19
PROVIDERS: ADMIT Allergy & Immunology; ATTEND Allergy & Immunology
PROC: HZ2ZZZZ Detoxification Services for Substance Abuse Treatment (ICD-10-PCS; principal; 2021-07-09)
PROC: 8E0WXY8 Suture Removal from Trunk Region (ICD-10-PCS; 2021-07-12)
PROC: HZ42ZZZ Group Counseling for Substance Abuse Treatment, Cognitive-Behavioral (ICD-10-PCS; 2021-07-15)
DX: F10.230 Alcohol dependence with withdrawal, uncomplicated (principal); F33.3 Major depressive disorder, recurrent, severe with psychotic symptoms; F10.282 Alcohol dependence with alcohol-induced sleep disorder; F10.24 Alcohol dependence with alcohol-induced mood disorder; F19.24 Other psychoactive substance dependence with psychoactive substance-induced mood disorder; J45.20 Mild intermittent asthma, uncomplicated; K21.9 Gastro-esophageal reflux disease without esophagitis; S01.112D Laceration without foreign body of left eyelid and periocular area, subsequent encounter; S00.12XD Contusion of left eyelid and periocular area, subsequent encounter; S41.001D Unspecified open wound of right shoulder, subsequent encounter; W19.XXXD Unspecified fall, subsequent encounter; G47.00 Insomnia, unspecified; Z87.820 Personal history of traumatic brain injury; Z87.891 Personal history of nicotine dependence; Z86.69 Personal history of other diseases of the nervous system and sense organs; Z56.0 Unemployment, unspecified; Z59.00 Homelessness unspecified; Z48.02 Encounter for removal of sutures
CPT/HCPCS: 36415; 80053; 85027; 86780; C9803; Q0162; U0003; U0005